=== PATIENT | male | born 1975 | race Caucasian/White ===

== ENCOUNTER 2023-07-11 09:11 | Inpatient (IN) | payer OTHER ==
[~2023-07-11] VITALS: Ht 175.3 cm; Wt 83.9 kg
[2023-07-11 09:20] VITALS: O2SAT 94
[2023-07-11] MEDS ORDERED: KETOROLAC 60MG/2ML VIAL IM ONE (09:30)
[2023-07-11] MEDS ORDERED: HYDROCODONE/ACETAMINOPHEN 10/325MG TABLET PO ONE (09:45)
[2023-07-11 11:09] LABS: CHLORIDE 103 mEq/L (98-107); INDEX HEMOLYSI 1 (1-3); INDEX ICTERIC 1 (1-4); INDEX LIPEMIC 1 (1-3); POTASSIUM 3.6 mEq/L (3.5-5.1); SODIUM 140 mEq/L (136-145)
[2023-07-11 11:13] LABS: HEMATOCRIT. 43.8 % (42.0-52.0); HEMOGLOBIN. 14.2 g/dL (14.0-18.0); MEAN CORPUSCULAR HEMOGLOBIN 28.6 pg (28.0-32.0); MEAN CORPUSCULAR HGB CONC 32.5 g/dL (31.0-37.0); MEAN CORPUSCULAR VOLUME 87.9 fL (80.0-94.0); MEAN PLATELET VOLUME 7.8 fl (7.4-10.4); PLATELET 224 x1000/uL (130-400); RED BLOOD CELL COUNT 4.97 mill/uL (4.7-6.1); RED CELL DISTRIBUTION WIDTH 14.2 % (11.6-14.6); WHITE BLOOD COUNT 15.8 x1000/uL (4.5-11.0)
[2023-07-11 11:17] LABS: DIFFERENTIAL COMMENT 1
[2023-07-11 11:25] LABS: ALANINE AMINOTRANSFERASE 24 IU/L (13-61); ALBUMIN 2.6 g/dL (3.4-5.0); ASPARTATE AMINOTRANSFERASE 130 IU/L (15-37); BILIRUBIN TOTAL 0.6 mg/dL (0.1-1.0); CALCIUM 12.8 mg/dL (8.5-10.1); CARBON DIOXIDE 32 mEq/L (21-32); CREATININE 0.9 mg/dL (0.6-1.3); GLUCOSE 131 mg/dL (70-105); NT PRO B-TYPE NATRIURETIC PEP 447 pg/mL (5-125); PROTEIN TOTAL 7.7 g/dL (6.0-8.3); UREA NITROGEN BLOOD 15 mg/dL (7-21)
[2023-07-11 12:01] LABS: PLATELET ESTIMATE NORMAL
[2023-07-11] MEDS ORDERED: FUROSEMIDE 40MG/4ML VIAL IVP ONE (12:45)
[2023-07-11] MEDS ORDERED: SODIUM CHLORIDE 0.9% 1,000 ML IV ONE ×2 (12:45)
[2023-07-11] MEDS ORDERED: FUROSEMIDE 40MG/4ML VIAL IVP NR (18:15)
[2023-07-11 20:00] VITALS: BP 142/87; PULSE 83; RESP 18; TEMP 97.3
[2023-07-11 21:34] VITALS: BP 143/88; PULSE 92; RESP 18; TEMP 97.3
[2023-07-11] MEDS: HYDROCODONE/ACETAMINOPHEN 10/325MG TABLET PO PRN (23:36)
[2023-07-11] MEDS: LISINOPRIL 20MG TABLET PO SCH (23:37)
[2023-07-12] VITALS: BP 138/82; PULSE 82; RESP 18; TEMP 97.5
[2023-07-12 04:00] VITALS: BP 150/85; PULSE 85; RESP 18; TEMP 97.1
[2023-07-12 06:22] LABS: BASOPHILS % 0.4 % (0.0-2.0); EOSINOPHILS % 0.5 % (0.0-5.0); HEMATOCRIT. 41.9 % (42.0-52.0); HEMOGLOBIN. 13.5 g/dL (14.0-18.0); LYMPHOCYTES % 13.3 % (20.0-50.0); MEAN CORPUSCULAR HEMOGLOBIN 28.3 pg (28.0-32.0); MEAN CORPUSCULAR HGB CONC 32.2 g/dL (31.0-37.0); MEAN CORPUSCULAR VOLUME 87.8 fL (80.0-94.0); MEAN PLATELET VOLUME 7.9 fl (7.4-10.4); MONOCYTES % 9.7 % (2.0-8.0); NEUTROPHILS % 76.1 % (40.0-76.0); PLATELET 208 x1000/uL (130-400); RED BLOOD CELL COUNT 4.77 mill/uL (4.7-6.1); RED CELL DISTRIBUTION WIDTH 14.2 % (11.6-14.6); WHITE BLOOD COUNT 13.8 x1000/uL (4.5-11.0)
[2023-07-12 07:55] LABS: CHLORIDE 102 mEq/L (98-107); INDEX HEMOLYSI 1 (1-3); INDEX ICTERIC 1 (1-4); INDEX LIPEMIC 1 (1-3); SODIUM 141 mEq/L (136-145)
[2023-07-12 08:00] VITALS: BP 144/89; PULSE 83; RESP 20; TEMP 98.2
[2023-07-12 08:09] LABS: ALANINE AMINOTRANSFERASE 20 IU/L (13-61); ALBUMIN 2.4 g/dL (3.4-5.0); ASPARTATE AMINOTRANSFERASE 112 IU/L (15-37); BILIRUBIN TOTAL 0.7 mg/dL (0.1-1.0); CALCIUM 12.8 mg/dL (8.5-10.1); CARBON DIOXIDE 31 mEq/L (21-32); CREATININE 0.8 mg/dL (0.6-1.3); GLUCOSE 100 mg/dL (70-105); UREA NITROGEN BLOOD 14 mg/dL (7-21)
[2023-07-12] MEDS ORDERED: POTASSIUM CHLORIDE 20MEQ/PACKET PO NR (09:00)
[2023-07-12] MEDS: LISINOPRIL 20MG TABLET PO SCH ×2 (10:26→20:08)
[2023-07-12] MEDS: HYDROCODONE/ACETAMINOPHEN 10/325MG TABLET PO PRN (10:33)
[2023-07-12 12:00] VITALS: BP 139/84; PULSE 84; RESP 18; TEMP 98.8
[2023-07-12] MEDS ORDERED: ONDANSETRON HCL 4MG/2ML INJ IV PRN (13:00)
[2023-07-12] MEDS ORDERED: NALOXONE HCL 0.4MG/ML VIAL IV PRN (13:15)
[2023-07-12 16:00] VITALS: BP 142/78; PULSE 80; RESP 20; TEMP 98
[2023-07-12] MEDS ORDERED: GADOTERATE MEGLUMINE 5 MMOL/10 ML VIAL IV ONE (16:22)
[2023-07-12 20:00] VITALS: BP 135/78; PULSE 92; RESP 16; TEMP 97.7
[2023-07-12] MEDS: MORPHINE SULFATE 15MG TABLET SR PO SCH (20:07)
[2023-07-12 20:49] LABS: INR 1.2; PROTHROMBIN TIME 12.6 sec (9.6-11.0)
[2023-07-13] VITALS: BP 141/95; PULSE 71; RESP 14; TEMP 98.9
[2023-07-13 04:00] VITALS: BP 135/78; PULSE 92; RESP 16; TEMP 97.7
[2023-07-13 08:00] VITALS: BP 142/88; PULSE 98; RESP 20; TEMP 97.7
[2023-07-13 12:00] VITALS: BP 160/97; PULSE 89; RESP 20; TEMP 96.7
[2023-07-13] MEDS: LISINOPRIL 20MG TABLET PO SCH ×2 (12:46→20:50)
[2023-07-13] MEDS: DEXAMETHASONE 4MG/ML 1ML VIAL IV SCH ×3 (12:46→23:06)
[2023-07-13] MEDS: DOCUSATE SODIUM 250MG CAPSULE PO SCH (12:46)
[2023-07-13] MEDS: MORPHINE SULFATE 15MG TABLET SR PO SCH ×2 (12:46→20:50)
[2023-07-13 16:00] VITALS: BP 129/79; PULSE 91; RESP 20; TEMP 97.6
[2023-07-13 20:00] VITALS: BP 136/86; PULSE 83; RESP 18; TEMP 97.7
[2023-07-14] VITALS (19 sets, daily range): BP systolic 114–175; BP diastolic 48–97; PULSE 74–89; RESP 16–37; TEMP 97.7–98.5
[2023-07-14] MEDS: DEXAMETHASONE 4MG/ML 1ML VIAL IV SCH ×4 (05:35→23:15)
[2023-07-14] MEDS ORDERED: GENTAMICIN SULF 40MG/ML 2ML VIAL ONE (06:30)
[2023-07-14] MEDS ORDERED: LIDOCAINE HCL/EPINEPHRINE 1%-EPI 1:100,000 20 ML VIAL ONE (06:30)
[2023-07-14] MEDS ORDERED: THROMBIN (BOVINE) 5000 UNITS/VIAL TOP ONE (06:30)
[2023-07-14 06:31] LABS: HEMATOCRIT. 46.3 % (42.0-52.0); HEMOGLOBIN. 15.1 g/dL (14.0-18.0); MEAN CORPUSCULAR HEMOGLOBIN 28.8 pg (28.0-32.0); MEAN CORPUSCULAR HGB CONC 32.7 g/dL (31.0-37.0); MEAN CORPUSCULAR VOLUME 88.1 fL (80.0-94.0); PLATELET 233 x1000/uL (130-400); RED BLOOD CELL COUNT 5.26 mill/uL (4.7-6.1); RED CELL DISTRIBUTION WIDTH 14.5 % (11.6-14.6); WHITE BLOOD COUNT 17.1 x1000/uL (4.5-11.0)
[2023-07-14 06:32] LABS: CHLORIDE 106 mEq/L (98-107); INDEX HEMOLYSI 1 (1-3); INDEX ICTERIC 1 (1-4); INDEX LIPEMIC 1 (1-3); POTASSIUM 3.7 mEq/L (3.5-5.1); SODIUM 143 mEq/L (136-145)
[2023-07-14 06:37] LABS: CALCIUM 12.6 mg/dL (8.5-10.1); CARBON DIOXIDE 32 mEq/L (21-32); CREATININE 0.9 mg/dL (0.6-1.3); GLUCOSE 151 mg/dL (70-105); UREA NITROGEN BLOOD 21 mg/dL (7-21)
[2023-07-14 06:40] LABS: DIFFERENTIAL COMMENT 1
[2023-07-14] MEDS ORDERED: HYDROMORPHONE HCL/PF 2MG/ML CPJ ONE (07:13)
[2023-07-14] MEDS ORDERED: PROPOFOL 200MG/20ML VIAL IV ONE (07:13)
[2023-07-14] MEDS ORDERED: ROCURONIUM BROMIDE 10MG/ML VIAL 5ML IV ONE ×3 (07:13→08:30)
[2023-07-14] MEDS ORDERED: ALBUMIN HUMAN 25GM/100ML (25%) IV ONE (08:28)
[2023-07-14] MEDS ORDERED: CALCIUM CHLORIDE 1GM/10ML SYR IV ONE (08:29)
[2023-07-14] MEDS: DOCUSATE SODIUM 250MG CAPSULE PO SCH (09:00)
[2023-07-14] MEDS: LISINOPRIL 20MG TABLET PO SCH ×2 (09:00→21:18)
[2023-07-14] MEDS ORDERED: NEOSTIGMINE METHYLSULFATE 1MG/ML 10 ML VIAL ONE (09:10)
[2023-07-14] MEDS ORDERED: GLYCOPYRROLATE 0.2 MG/ML 2ML VIAL ONE ×3 (09:11)
[2023-07-14] MEDS ORDERED: SUGAMMADEX SODIUM 200 MG/2 ML VIAL IV NR (09:15)
[2023-07-14] MEDS ORDERED: ONDANSETRON HCL 4MG/2ML INJ IV PRN (10:00)
[2023-07-14] MEDS ORDERED: MEPERIDINE HCL/PF 25MG/ML CPJ IV PRN (10:00)
[2023-07-14] MEDS ORDERED: HYDROMORPHONE HCL/PF 2MG/ML CPJ IV PRN (10:00)
[2023-07-14] MEDS ORDERED: LABETALOL 5MG/ML SYR 20 MG/4 ML SYRINGE IV PRN (10:00)
[2023-07-14] MEDS: DEXT 5%/LACTATED RINGERS 1,000 ML IV SCH ×2 (11:20→21:19)
[2023-07-14] MEDS ORDERED: NICARDIPINE 100 MG in SODIUM CHLORIDE 0.9% 60 ML IV PRN (13:00)
[2023-07-14] MEDS ORDERED: CEFAZOLIN SODIUM 1000MG/VIAL IV SCH (14:00)
[2023-07-14] MEDS: CEFAZOLIN 1000MG PREMIX 50 ML IV SCH ×2 (14:49→21:18)
[2023-07-14 20:15] LABS: PLATELET ESTIMATE NORMAL
[2023-07-14] MEDS: MORPHINE SULFATE 4 MG/ML CPJ (NOT FOR IM USE) IV PRN (23:13)
[2023-07-15] VITALS (22 sets, daily range): BP systolic 119–174; BP diastolic 51–97; PULSE 73–95; RESP 16–36; TEMP 97.3–98.8
[2023-07-15] MEDS: HYDRALAZINE 20MG/ML VIAL IV PRN ×2 (01:38→09:28)
[2023-07-15] MEDS: DEXAMETHASONE 4MG/ML 1ML VIAL IV SCH ×2 (06:13→12:01)
[2023-07-15] MEDS: CEFAZOLIN 1000MG PREMIX 50 ML IV SCH ×3 (06:13→22:55)
[2023-07-15] MEDS: DEXT 5%/LACTATED RINGERS 1,000 ML IV SCH (06:13)
[2023-07-15] MEDS: DOCUSATE SODIUM 250MG CAPSULE PO SCH (09:11)
[2023-07-15] MEDS: LISINOPRIL 20MG TABLET PO SCH ×2 (09:11→21:00)
[2023-07-15] MEDS ORDERED: HYDRALAZINE HCL 50MG TABLET PO NR (11:00)
[2023-07-15] MEDS: AMLODIPINE 10MG TABLET PO SCH (12:01)
[2023-07-15] MEDS: HYDRALAZINE HCL 50MG TABLET PO SCH (16:26)
[2023-07-16] VITALS: BP 128/80; PULSE 86; RESP 17; TEMP 97.7
[2023-07-16 00:20] VITALS: RESP 31
[2023-07-16] MEDS: CEFAZOLIN 1000MG PREMIX 50 ML IV SCH (05:47)
[2023-07-16 07:31] LABS: HEMATOCRIT. 38.3 % (42.0-52.0); HEMOGLOBIN. 12.7 g/dL (14.0-18.0); MEAN CORPUSCULAR HGB CONC 33.2 g/dL (31.0-37.0); MEAN CORPUSCULAR VOLUME 87.6 fL (80.0-94.0); MEAN PLATELET VOLUME 8.3 fl (7.4-10.4); PLATELET 175 x1000/uL (130-400); RED BLOOD CELL COUNT 4.37 mill/uL (4.7-6.1); RED CELL DISTRIBUTION WIDTH 14.1 % (11.6-14.6); WHITE BLOOD COUNT 18.3 x1000/uL (4.5-11.0)
[2023-07-16 07:32] LABS: CHLORIDE 101 mEq/L (98-107); INDEX HEMOLYSI 1 (1-3); INDEX ICTERIC 1 (1-4); INDEX LIPEMIC 1 (1-3); POTASSIUM 3.6 mEq/L (3.5-5.1); SODIUM 137 mEq/L (136-145)
[2023-07-16 07:39] LABS: DIFFERENTIAL COMMENT 1
[2023-07-16 07:42] LABS: CALCIUM 11.9 mg/dL (8.5-10.1); CARBON DIOXIDE 31 mEq/L (21-32); CREATININE 0.7 mg/dL (0.6-1.3); GLUCOSE 159 mg/dL (70-105); PHOSPHORUS 2.3 mg/dL (2.5-4.9); UREA NITROGEN BLOOD 26 mg/dL (7-21)
[2023-07-16 08:00] VITALS: BP 129/75; PULSE 88; RESP 17; TEMP 96.1
[2023-07-16] MEDS: HYDRALAZINE HCL 50MG TABLET PO SCH ×2 (09:24→17:00)
[2023-07-16] MEDS: DOCUSATE SODIUM 250MG CAPSULE PO SCH (09:24)
[2023-07-16] MEDS: LISINOPRIL 20MG TABLET PO SCH ×2 (09:24→21:50)
[2023-07-16] MEDS: AMLODIPINE 10MG TABLET PO SCH (09:24)
[2023-07-16 12:00] VITALS: BP 157/86; PULSE 94; RESP 19; TEMP 98.6
[2023-07-16 14:33] LABS: NUCLEATED RED BLOOD CELLS 1 /100 WBC; PLATELET ESTIMATE NORMAL
[2023-07-16 16:00] VITALS: BP 132/72; PULSE 100; RESP 20; TEMP 98.5
[2023-07-16] MEDS: AMLODIPINE 2.5MG TABLET PO SCH (17:00)
[2023-07-16 20:00] VITALS: BP 125/80; PULSE 94; RESP 18; TEMP 98.9
[2023-07-16] MEDS: MORPHINE SULFATE 4 MG/ML CPJ (NOT FOR IM USE) IV PRN (22:17)
[2023-07-17] VITALS: BP 124/72; PULSE 86; RESP 18; TEMP 98.8
[2023-07-17 04:00] VITALS: BP 120/76; PULSE 94; RESP 20; TEMP 97.7
[2023-07-17] MEDS: MORPHINE SULFATE 4 MG/ML CPJ (NOT FOR IM USE) IV PRN ×2 (05:41→21:17)
[2023-07-17 08:00] VITALS: BP 109/69; PULSE 82; RESP 19; TEMP 98.4
[2023-07-17] MEDS: DOCUSATE SODIUM 250MG CAPSULE PO SCH (09:00)
[2023-07-17] MEDS: AMLODIPINE 2.5MG TABLET PO SCH ×2 (09:26→17:08)
[2023-07-17] MEDS: HYDRALAZINE HCL 50MG TABLET PO SCH ×2 (09:26→17:08)
[2023-07-17] MEDS: LISINOPRIL 20MG TABLET PO SCH ×2 (09:26→21:16)
[2023-07-17 12:00] VITALS: BP 113/62; PULSE 88; RESP 19; TEMP 97.5
[2023-07-17 16:00] VITALS: BP 124/66; PULSE 86; RESP 19; TEMP 97.9
[2023-07-17 20:00] VITALS: BP 109/63; PULSE 87; RESP 16; TEMP 97.1
[2023-07-18] VITALS: BP 109/64; PULSE 92; RESP 16; TEMP 96.5
[2023-07-18 04:00] VITALS: BP 110/68; PULSE 96; RESP 16; TEMP 96.5
[2023-07-18 06:54] LABS: BASOPHILS % 0.1 % (0.0-2.0); EOSINOPHILS % 0.9 % (0.0-5.0); HEMATOCRIT. 37.2 % (42.0-52.0); HEMOGLOBIN. 12.1 g/dL (14.0-18.0); LYMPHOCYTES % 10.4 % (20.0-50.0); MEAN CORPUSCULAR HEMOGLOBIN 28.4 pg (28.0-32.0); MEAN CORPUSCULAR HGB CONC 32.5 g/dL (31.0-37.0); MEAN CORPUSCULAR VOLUME 87.4 fL (80.0-94.0); MEAN PLATELET VOLUME 8.1 fl (7.4-10.4); MONOCYTES % 8.1 % (2.0-8.0); NEUTROPHILS % 80.5 % (40.0-76.0); PLATELET 205 x1000/uL (130-400); RED BLOOD CELL COUNT 4.25 mill/uL (4.7-6.1); RED CELL DISTRIBUTION WIDTH 14.5 % (11.6-14.6)
[2023-07-18 08:00] VITALS: BP 112/66; PULSE 91; RESP 19; TEMP 100
[2023-07-18] MEDS: AMLODIPINE 2.5MG TABLET PO SCH ×2 (09:00→17:15)
[2023-07-18] MEDS: HYDRALAZINE HCL 50MG TABLET PO SCH ×2 (09:00→17:15)
[2023-07-18] MEDS: DOCUSATE SODIUM 250MG CAPSULE PO SCH (09:00)
[2023-07-18] MEDS: LISINOPRIL 20MG TABLET PO SCH ×2 (09:00→21:10)
[2023-07-18 09:33] LABS: CHLORIDE 105 mEq/L (98-107); INDEX HEMOLYSI 1 (1-3); INDEX ICTERIC 1 (1-4); INDEX LIPEMIC 1 (1-3); SODIUM 140 mEq/L (136-145)
[2023-07-18 09:54] LABS: CALCIUM 11.2 mg/dL (8.5-10.1); CARBON DIOXIDE 28 mEq/L (21-32); CREATININE 0.7 mg/dL (0.6-1.3); GLUCOSE 134 mg/dL (70-105); UREA NITROGEN BLOOD 29 mg/dL (7-21)
[2023-07-18 12:00] VITALS: BP 106/67; PULSE 92; RESP 19; TEMP 98
[2023-07-18] MEDS ORDERED: CEFTRIAXONE 1GM PREMIX 50 ML IV SCH (13:15)
[2023-07-18] MEDS: HYDROCODONE/ACETAMINOPHEN 5/325MG TABLET PO PRN ×2 (14:45→22:10)
[2023-07-18 16:00] VITALS: BP 120/71; PULSE 89; RESP 19; TEMP 100.6
[2023-07-18] MEDS: CEFTRIAXONE 1,000 MG in DEXTROSE 5% WATER 50 ML IV SCH (17:15)
[2023-07-18 20:00] VITALS: BP 114/67; PULSE 89; RESP 17; TEMP 98.6
[2023-07-19] VITALS: BP 126/76; PULSE 91; RESP 18; TEMP 95.7
[2023-07-19 04:00] VITALS: BP 132/81; PULSE 83; RESP 18; TEMP 96.4
[2023-07-19 07:03] LABS: BASOPHILS % 0.3 % (0.0-2.0); EOSINOPHILS % 0.9 % (0.0-5.0); HEMATOCRIT. 38.3 % (42.0-52.0); HEMOGLOBIN. 12.6 g/dL (14.0-18.0); LYMPHOCYTES % 10.9 % (20.0-50.0); MEAN CORPUSCULAR VOLUME 88.1 fL (80.0-94.0); MONOCYTES % 8.5 % (2.0-8.0); NEUTROPHILS % 79.4 % (40.0-76.0); PLATELET 217 x1000/uL (130-400); RED BLOOD CELL COUNT 4.34 mill/uL (4.7-6.1); RED CELL DISTRIBUTION WIDTH 14.5 % (11.6-14.6); WHITE BLOOD COUNT 21.9 x1000/uL (4.5-11.0)
[2023-07-19 07:33] LABS: INDEX HEMOLYSI 1 (1-3); INDEX ICTERIC 1 (1-4); INDEX LIPEMIC 1 (1-3)
[2023-07-19 08:00] VITALS: BP 113/70; PULSE 90; RESP 19; TEMP 98
[2023-07-19] MEDS: HYDRALAZINE HCL 50MG TABLET PO SCH ×2 (08:46→17:57)
[2023-07-19] MEDS: HYDROCODONE/ACETAMINOPHEN 5/325MG TABLET PO PRN ×3 (08:46→21:57)
[2023-07-19] MEDS: DOCUSATE SODIUM 250MG CAPSULE PO SCH (08:46)
[2023-07-19] MEDS: LISINOPRIL 20MG TABLET PO SCH ×2 (08:47→21:57)
[2023-07-19] MEDS: AMLODIPINE 2.5MG TABLET PO SCH ×2 (08:47→17:56)
[2023-07-19 09:09] LABS: CALCIUM 10.8 mg/dL (8.5-10.1); CARBON DIOXIDE 28 mEq/L (21-32); CREATININE 0.7 mg/dL (0.6-1.3); GLUCOSE 132 mg/dL (70-105); UREA NITROGEN BLOOD 30 mg/dL (7-21)
[2023-07-19 12:00] VITALS: BP 144/64; PULSE 107; RESP 20; TEMP 97.7
[2023-07-19] MEDS: CEFTRIAXONE 1,000 MG in DEXTROSE 5% WATER 50 ML IV SCH (14:06)
[2023-07-19 16:00] VITALS: BP 133/81; PULSE 90; RESP 20; TEMP 97.7
[2023-07-19 19:08] LABS: CLARITY URINE CLOUDY (CLEAR); COLOR URINE YELLOW (YELLOW); GLUCOSE URINE NEGATIVE (NEGATIVE); KETONES URINE NEGATIVE (NEGATIVE); LEUKOCYTE ESTERASE URINE 1+ (NEGATIVE); NITRITE URINE NEGATIVE (NEGATIVE); OCCULT BLOOD URINE TRACE (NEGATIVE); PROTEIN URINE NEGATIVE (NEGATIVE); SPECIFIC GRAVITY URINE 1.015 (1.005-1.030)
[2023-07-19 19:33] LABS: BACTERIA URINE 1+; COARSE GRANULAR CASTS URINE 0-5 /lpf; HYALINE CASTS URINE 0-5 /lpf; SQUAMOUS EPITHELIAL CELL URINE 1+ /lpf (RARE/1+)
[2023-07-19 20:00] VITALS: BP 117/77; PULSE 93; RESP 19; TEMP 97.7
[2023-07-19 20:16] LABS: CHLORIDE 102 mEq/L (98-107); POTASSIUM 4.4 mEq/L (3.5-5.1); SODIUM 136 mEq/L (136-145)
[2023-07-20] VITALS: BP 125/73; PULSE 95; RESP 20; TEMP 97.4
[2023-07-20] MEDS: HYDRALAZINE HCL 50MG TABLET PO SCH ×2 (02:04→08:49)
[2023-07-20] MEDS: HYDROCODONE/ACETAMINOPHEN 5/325MG TABLET PO PRN ×4 (02:06→20:48)
[2023-07-20 04:00] VITALS: BP 127/75; PULSE 94; RESP 19; TEMP 97.4
[2023-07-20 06:48] LABS: BASOPHILS % 0.5 % (0.0-2.0); DIFFERENTIAL COMMENT 0; EOSINOPHILS % 1.1 % (0.0-5.0); HEMOGLOBIN. 12.5 g/dL (14.0-18.0); LYMPHOCYTES % 11.1 % (20.0-50.0); MEAN CORPUSCULAR HEMOGLOBIN 29.2 pg (28.0-32.0); MEAN CORPUSCULAR HGB CONC 32.8 g/dL (31.0-37.0); MEAN PLATELET VOLUME 8.6 fl (7.4-10.4); NEUTROPHILS % 79.3 % (40.0-76.0); PLATELET 216 x1000/uL (130-400); RED BLOOD CELL COUNT 4.26 mill/uL (4.7-6.1); RED CELL DISTRIBUTION WIDTH 14.7 % (11.6-14.6); WHITE BLOOD COUNT 20.5 x1000/uL (4.5-11.0)
[2023-07-20 08:00] VITALS: BP 118/64; PULSE 91; RESP 19; TEMP 96.7
[2023-07-20] MEDS: AMLODIPINE 2.5MG TABLET PO SCH (08:48)
[2023-07-20] MEDS: DOCUSATE SODIUM 250MG CAPSULE PO SCH (08:49)
[2023-07-20] MEDS: LISINOPRIL 20MG TABLET PO SCH ×2 (08:50→20:48)
[2023-07-20 12:00] VITALS: BP 123/75; PULSE 93; RESP 20; TEMP 97.8
[2023-07-20] MEDS: CEFTRIAXONE 1,000 MG in DEXTROSE 5% WATER 50 ML IV SCH (14:20)
[2023-07-20 16:00] VITALS: BP 126/71; PULSE 88; RESP 20; TEMP 98.2
[2023-07-20 20:00] VITALS: BP 125/72; PULSE 100; RESP 18; TEMP 96.8
[2023-07-20] MEDS: HYDRALAZINE HCL 25MG TABLET PO SCH (22:00)
[2023-07-21] MEDS: HYDRALAZINE HCL 25MG TABLET PO SCH ×2 (06:48→14:00)
[2023-07-21] MEDS: HYDROCODONE/ACETAMINOPHEN 5/325MG TABLET PO PRN ×3 (06:48→18:34)
[2023-07-21 08:00] VITALS: BP 116/68; PULSE 94; RESP 20; TEMP 97.7
[2023-07-21] MEDS ORDERED: POLYETHYLENE GLYCOL 3350 (17GM) 1 DOSE PACK PO SCH (10:15)
[2023-07-21] MEDS: DOCUSATE SODIUM 250MG CAPSULE PO SCH (10:38)
[2023-07-21] MEDS: AMLODIPINE 2.5MG TABLET PO SCH ×2 (10:38→18:33)
[2023-07-21] MEDS: LISINOPRIL 20MG TABLET PO SCH (10:39)
[2023-07-21 12:00] VITALS: BP 120/66; PULSE 94; RESP 20; TEMP 98.4
[2023-07-21] MEDS: CEFTRIAXONE 1,000 MG in DEXTROSE 5% WATER 50 ML IV SCH (13:44)
[2023-07-21 16:00] VITALS: BP 120/72; PULSE 97; RESP 20; TEMP 97.9
[2023-07-21 17:36] LABS: BASOPHILS % 0.3 % (0.0-2.0); DIFFERENTIAL COMMENT 0; EOSINOPHILS % 0.6 % (0.0-5.0); HEMATOCRIT. 38.1 % (42.0-52.0); HEMOGLOBIN. 12.1 g/dL (14.0-18.0); LYMPHOCYTES % 10.6 % (20.0-50.0); MEAN CORPUSCULAR HEMOGLOBIN 28.3 pg (28.0-32.0); MEAN CORPUSCULAR HGB CONC 31.7 g/dL (31.0-37.0); MEAN CORPUSCULAR VOLUME 89.1 fL (80.0-94.0); MEAN PLATELET VOLUME 8.3 fl (7.4-10.4); MONOCYTES % 9.2 % (2.0-8.0); NEUTROPHILS % 79.3 % (40.0-76.0); PLATELET 262 x1000/uL (130-400); RED BLOOD CELL COUNT 4.28 mill/uL (4.7-6.1); RED CELL DISTRIBUTION WIDTH 14.7 % (11.6-14.6); WHITE BLOOD COUNT 23.1 x1000/uL (4.5-11.0)
[2023-07-21 18:19] LABS: CHLORIDE 102 mEq/L (98-107); INDEX HEMOLYSI 1 (1-3); INDEX ICTERIC 1 (1-4); INDEX LIPEMIC 1 (1-3); POTASSIUM 4.7 mEq/L (3.5-5.1); SODIUM 138 mEq/L (136-145)
[2023-07-21 18:34] VITALS: PULSE 80
[2023-07-21 18:34] LABS: CARBON DIOXIDE 30 mEq/L (21-32); CREATININE 1.1 mg/dL (0.6-1.3); GLUCOSE 125 mg/dL (70-105); UREA NITROGEN BLOOD 38 mg/dL (7-21)
[2023-07-21 18:46] LABS: CALCIUM 13.4 mg/dL (8.5-10.1)
== END 2023-07-21 21:05 | disposition short-term general hospital (02) | DRG 854 ==
LOC: ER 09:11 → EDBEDREQTM 16:03 → EDBEDREQ 16:03 → 8WST 20:22 → MICUSO 07-14 12:23 → 6EST 07-15 17:17
PROVIDERS: ADMIT Internal Medicine; ATTEND Internal Medicine
PROC: 00BX0ZZ Excision of Thoracic Spinal Cord, Open Approach (ICD-10-PCS; principal; 2023-07-14)
PROC: 0RGA0J1 Fusion of Thoracolumbar Vertebral Joint with Synthetic Substitute, Posterior Approach, Posterior Column, Open Approach (ICD-10-PCS; 2023-07-14)
PROC: 00NX0ZZ Release Thoracic Spinal Cord, Open Approach (ICD-10-PCS; 2023-07-14)
PROC: 00NY0ZZ Release Lumbar Spinal Cord, Open Approach (ICD-10-PCS; 2023-07-14)
DX: A41.9 Sepsis, unspecified organism (principal); C78.7 Secondary malignant neoplasm of liver and intrahepatic bile duct; C79.51 Secondary malignant neoplasm of bone; E44.0 Moderate protein-calorie malnutrition; G82.20 Paraplegia, unspecified; M48.061 Spinal stenosis, lumbar region without neurogenic claudication; E87.6 Hypokalemia; E83.52 Hypercalcemia; D72.829 Elevated white blood cell count, unspecified; I11.0 Hypertensive heart disease with heart failure; Z68.27 Body mass index [BMI] 27.0-27.9, adult; I50.9 Heart failure, unspecified; D49.7 Neoplasm of unspecified behavior of endocrine glands and other parts of nervous system; E11.9 Type 2 diabetes mellitus without complications; E83.42 Hypomagnesemia; G47.33 Obstructive sleep apnea (adult) (pediatric); Z79.899 Other long term (current) drug therapy; Z85.05 Personal history of malignant neoplasm of liver; Z86.73 Personal history of transient ischemic attack (TIA), and cerebral infarction without residual deficits
CPT/HCPCS: 36415; 71045; 72080; 72131; 72148; 72158; 76000; 80048; 80053; 81003; 83735; 83880; 84100; 84145; 85025; 86850; 86900; 87426; 88304; 88311; 93005; 93306; 94660; 95925; 95926; 95928; 95929; 97110; 97162; 97166; 97530; 97535; 99285; A6261; A9577; J0360; J0690; J0696; J1100; J1170; J1580; J1885; J1940; J2270; J2704; J2710; J3490; J7030; J7060; J7121; P9047; A4315; C1713